=== PATIENT | female | born 1995 | race Two or more races ===

== ENCOUNTER 2016-11-25 04:22 | Inpatient (IN) | payer MEDICAID ==
[~2016-11-25] VITALS: Ht 160 cm; Wt 70.4 kg
[2016-11-25 05:25] LABS: Urine Bilirubin Negative (Negative); Urine Blood Negative /uL (Negative); Urine Color Yellow (Yellow); Urine Glucose Normal (Normal); Urine Ketone 2+ (Negative); Urine Mucus FEW (None Seen); Urine Nitrite Negative (Negative); Urine RBC 14 /hpf (0 - 4); Urine Squamous Epithelial Cell FEW /hpf (<5); Urine pH 5.5 (5.0-8.0)
[2016-11-25] MEDS ORDERED: SODIUM CHLORIDE 0.9% 1,000 ML IV ONE ×2 (07:30→09:45)
[2016-11-25 08:21] LABS: Basophils # (auto) 0 uL; CONDITION Y; Eosinophils # (auto) 0 uL; Eosinophils % (auto) 0.3 % (0.0-7.0); Hematocrit 37.6 % (36.0-46.0); Hemoglobin 12.7 g/dL (12.2-16.2); Lymphocytes # (auto) 0.4 uL; Lymphocytes % (auto) 5.2 % (10.0-50.0); Mean Corpuscular Hgb Conc. 33.8 g/dL (32.0-36.0); Mean Corpuscular Volume 91.6 fL (80.0-100.0); Mean Platelet Volume 10.2 fL (7.4-10.4); Monocytes # (auto) 0.2 uL; Monocytes % (auto) 2.9 % (0.0-12.0); Neutrophils # (auto) 6.9 uL; Neutrophils % (auto) 91.6 % (37.0-80.0); Platelet Count (auto) 225 10^3/uL (140-450); Red Cell Distribution Width 13.1 % (11.6-16.0); SUSPECT SEE PRINTOUT; White Blood Cell 7.5 10^3/uL (4.4-10.8)
[2016-11-25 08:35] LABS: INR 0.98 (0.9-1.15); Partial Thromboplastin Time 23.7 sec (22.64-33.71); Prothrombin Time 10.7 sec (9.37-12.3)
[2016-11-25 09:05] LABS: Albumin 4.1 g/dL (3.4-5.0); BUN/Creatinine Ratio 22.4; Bilirubin, Total 0.8 mg/dL (0.2-1.0); Calcium 8.6 mg/dL (8.5-10.1); Potassium 3.6 mmol/L (3.5-5.1); Total Protein 7.9 g/dL (6.4-8.2)
[2016-11-25] MEDS ORDERED: cefTRIAXone 1GM/50ML D5W 50 ML IV ONE ×2 (09:45→10:00)
[2016-11-25] MEDS ORDERED: PROMETHAZINE HCL 25 MG/ML 1ML IV PRN (10:00)
[2016-11-25] MEDS ORDERED: MORPHINE SULF INJ 2 MG/ML SYRINGE 1ML IV PRN (10:00)
[2016-11-25] MEDS ORDERED: LORazepam 0.5 MG TAB PO PRN (10:00)
[2016-11-25] MEDS ORDERED: TEMAZEPAM 15 MG CAP PO PRN (10:00)
[2016-11-25] MEDS: FAMOTIDINE (10MG/ML) 2ML VL IV SCH ×2 (10:16→21:23)
[2016-11-25] MEDS: SODIUM CHLORIDE 0.9% 1,000 ML IV SCH ×2 (13:16→20:52)
[2016-11-25] MEDS ORDERED: MORPHINE SULFATE 4 MG/ML SYRG IV PRN (14:11)
[2016-11-25 20:00] VITALS: BP 103/67
[2016-11-25 22:00] VITALS: BP 103/67
[2016-11-26] VITALS (7 sets, daily range): BP systolic 97–127; BP diastolic 55–78
[2016-11-26] MEDS: SODIUM CHLORIDE 0.9% 1,000 ML IV SCH ×2 (05:48→15:48)
[2016-11-26 07:32] LABS: BUN/Creatinine Ratio 9.6; Bilirubin, Total 0.4 mg/dL (0.2-1.0); Calcium 7.7 mg/dL (8.5-10.1); Potassium 3.5 mmol/L (3.5-5.1); Total Protein 5.9 g/dL (6.4-8.2)
[2016-11-26 07:38] LABS: Basophils # (auto) 0 uL; Basophils % (auto) 0.4 % (0.0-2.0); CONDITION Y; Eosinophils # (auto) 0.2 uL; Eosinophils % (auto) 4.5 % (0.0-7.0); Hematocrit 31.6 % (36.0-46.0); Hemoglobin 10.7 g/dL (12.2-16.2); Lymphocytes # (auto) 1.6 uL; Mean Corpuscular Hemoglobin 31.4 pg (28.0-32.0); Mean Corpuscular Hgb Conc. 33.8 g/dL (32.0-36.0); Mean Platelet Volume 10.8 fL (7.4-10.4); Monocytes # (auto) 0.2 uL; Monocytes % (auto) 6.3 % (0.0-12.0); Neutrophils # (auto) 1.5 uL; Neutrophils % (auto) 43.8 % (37.0-80.0); Platelet Count (auto) 175 10^3/uL (140-450); Red Cell Distribution Width 13.6 % (11.6-16.0); White Blood Cell 3.5 10^3/uL (4.4-10.8)
[2016-11-26] MEDS ORDERED: cefTRIAXone 1GM/50ML D5W 50 ML IV SCH (09:00)
[2016-11-26] MEDS ORDERED: CEFTRIAXONE SODIUM 2 GM in D5W 5% 50 ML IV SCH (10:00)
[2016-11-26] MEDS: FAMOTIDINE (10MG/ML) 2ML VL IV SCH (11:24)
[2016-11-30 05:09] LABS: Ceruloplasmin 27.6 mg/dL (19.0-39.0)
== END 2016-11-26 21:30 | disposition home or self-care (01) ==
LOC: ER 04:25 → OVERFLOW 04:26 → WEST WING 19:42
PROVIDERS: ADMIT Internal Medicine; ATTEND Hospitalist
DX: B17.9 Acute viral hepatitis, unspecified (principal); E27.8 Other specified disorders of adrenal gland; N39.0 Urinary tract infection, site not specified; Z83.3 Family history of diabetes mellitus; Z71.89 Other specified counseling
CPT/HCPCS: 36415; 71010; 74176; 76705; 76830; 76856; 80053; 80074; 81001; 81025; 82150; 82390; 83540; 83550; 83690; 85025; 85610; 85652; 85730; 86141; 87086; 96361; 96374; J0696; J3490; J7060

== ENCOUNTER 2020-03-20 11:45 | Inpatient (IN) | payer MEDICAID ==
[~2020-03-20] VITALS: Ht 160 cm; Wt 79.3 kg
[2020-03-20] MEDS ORDERED: SODIUM CHLORIDE 0.9% 1,000 ML IVB ONE (12:15)
[2020-03-20 12:40] LABS: Urine Bacteria NONE SEEN /hpf (None Seen); Urine Blood 3+ /uL (Negative); Urine Mucus FEW (None Seen); Urine Specific Gravity 1.021 (1.001-1.035); Urine WBC 68 /hpf (0 - 5)
[2020-03-20 13:48] LABS: Basophils # (auto) 0 10 ^3/uL (0-0.2); Basophils % (auto) 0.5 % (0.0-2.0); Eosinophils # (auto) 0.1 10 ^3/uL (0-0.8); Eosinophils % (auto) 1.7 % (0.0-7.0); Hematocrit 31.9 % (36.0-46.0); Hemoglobin 10.1 g/dL (12.2-16.2); Lymphocytes # (auto) 1.4 10 ^3/uL (0.4-5.4); Lymphocytes % (auto) 29.9 % (10.0-50.0); Mean Corpuscular Hemoglobin 27.6 pg (28.0-32.0); Mean Corpuscular Hgb Conc. 31.8 g/dL (32.0-36.0); Mean Corpuscular Volume 86.9 fL (80.0-100.0); Monocytes # (auto) 0.2 10 ^3/uL (0-1.3); Monocytes % (auto) 5.2 % (0.0-12.0); Neutrophils % (auto) 62.7 % (37.0-80.0); Platelet Count (auto) 247 10^3/uL (140-450); Red Blood Cells 3.67 10^6/uL (4.0-5.20); Red Cell Distribution Width 14.9 % (11.8-14.3); White Blood Cell 4.7 10^3/uL (4.4-10.8)
[2020-03-20 14:01] LABS: INR 0.98 (0.9-1.15); Partial Thromboplastin Time 24.6 sec (23.0-31.2)
[2020-03-20 14:02] LABS: Albumin 3.3 g/dL (3.4-5.0); Calcium 8.7 mg/dL (8.5-10.1); Potassium 3.3 mmol/L (3.5-5.1)
[2020-03-20 14:05] LABS: BUN/Creatinine Ratio 13.4
[2020-03-20 14:08] LABS: Bilirubin, Total 0.3 mg/dL (0.2-1.0)
[2020-03-20] MEDS ORDERED: POTASSIUM CHL 20 Meq TABLET PO ONE (15:00)
[2020-03-20] MEDS ORDERED: cefTRIAXone 1GM/50ML D5W 50 ML IV ONE (15:00)
[2020-03-20] MEDS ORDERED: ONDANSETRON HCL 4 MG/2 ML VIAL IV ONE (16:45)
[2020-03-20] MEDS ORDERED: MORPHINE SULF INJ 2 MG/ML SYRINGE 1ML IV ONE (16:45)
[2020-03-20] MEDS ORDERED: NITROGLYCERIN 0.4 MG SL TAB SL PRN ×2 (17:30→17:45)
[2020-03-20] MEDS ORDERED: MORPHINE SULF INJ 2 MG/ML SYRINGE 1ML IV PRN ×2 (17:30→17:45)
[2020-03-20] MEDS ORDERED: FOLIC ACID 1 MG TAB PO ONE (17:45)
[2020-03-20] MEDS ORDERED: ALUM & MAG HYDROX-SIMETH LIQ(MAALOX) 30 ML PO PRN (17:45)
[2020-03-20] MEDS ORDERED: MULTIPLE VITAMINS W/ MINERALS TAB PO ONE (17:45)
[2020-03-20] MEDS ORDERED: HYDROcodone-ACET 5/325MG TAB PO PRN (17:45)
[2020-03-20] MEDS ORDERED: DOCUSATE SOD 100 MG CAP PO PRN (17:45)
[2020-03-20] MEDS ORDERED: ONDANSETRON HCL 4 MG/2 ML VIAL IV PRN (17:45)
[2020-03-20] MEDS ORDERED: POTASSIUM CHL 20MEQ/100ML 100 ML IV ONE (17:45)
[2020-03-20] MEDS ORDERED: LACTATED RINGER'S 1,000 ML IV ONE (17:45)
[2020-03-20] MEDS ORDERED: ACETAMINOPHEN 325 MG TAB PO PRN (17:45)
[2020-03-20] MEDS ORDERED: LORazepam 0.5 MG TAB PO PRN (17:45)
[2020-03-20] MEDS ORDERED: FAMOTIDINE (10MG/ML) 2ML VL IV ONE (17:45)
[2020-03-20] MEDS ORDERED: CLINDAMYCIN 600MG IV 50 ML IV ONE (18:00)
[2020-03-20 19:23] LABS: % Iron Saturation 6.4 % (15-50)
[2020-03-20] MEDS: SODIUM CHLORIDE 0.9% 1,000 ML IV SCH (20:15)
--- NOTE | 2020-03-20 20:21 | NUR ---
ER CALLED [employer]ER CONSULT WITH DR. HARTMANN.
--- NOTE | 2020-03-20 20:30 | NUR ---
Opening note Telemetry admit from ER JUNEYARELI admitted to Telemetry unit. Patient oriented to KORI GIBSON, RN primary RN, unit, room, bed, and unit policies regarding patient care and visiting hours. Patient now on continuous telemetry monitoring, tele box # 32 and telemetry reading on arrival to unit is NSR. Patient placed on bedside oxygen, weighed by bedscale and encouraged to call if they need something. All questions and concerns addressed, patient verbalized understanding. Will continue to monitor Q1hr and PRN.
[2020-03-20 20:40] VITALS: BP 118/76
[2020-03-20] MEDS: MORPHINE SULF INJ 2 MG/ML SYRINGE 1ML IV PRN (20:50)
[2020-03-20 21:00] LABS: Alcohol, Urine < 3.0 mg/dL (0-10); Amphetamine Screen, Urine NEGATIVE (NEGATIVE); Barbiturate Scree,Urine NEGATIVE (NEGATIVE); Benzodiazephine Screen, Urine NEGATIVE (NEGATIVE); Cannabinoid Screen, Urine NEGATIVE (NEGATIVE); Cocaine Screen, Urine NEGATIVE (NEGATIVE); Opiate Scree,Urine NEGATIVE (NEGATIVE); Phencyclidine Screen, Urine NEGATIVE (NEGATIVE)
--- NOTE | 2020-03-20 21:30 | NUR ---
K-rider Patients potasium is 3.3. 20 meq is ordered IV once. Patient brought up from ER with K rider going. Patient states K rider was burning to much in the ER. Explained to the patient how a k rider works and how it gets diluted with Normal saline, and I can place it at lowest rate. Patient does not want to the k rider to infuse. Educated patient on the importance of potassium to infuse. Patient verbalized understanding. Flushed IV with 10 cc of normal saline patient tolerated well. no infiltration or discomfort. Will page the hospitalist to make aware. Patient stated she does not mind taking anything PO.
[2020-03-20 21:39] LABS: Cholesterol 123 mg/dL (< 200)
[2020-03-20 21:43] LABS: HDL Cholesterol 43 mg/dL (40-59); LDL Cholesterol 73 mg/dL (< 100); Triglycerides 88 mg/dL (< 150)
[2020-03-20 22:00] VITALS: BP 118/76
--- NOTE | 2020-03-20 22:00 | NUR ---
Paged Hospitalist Paged Hospitalist because patient is refusing the K rider to infuse. Will see if doctor will order anything PO. Will continue to monitor.
--- NOTE | 2020-03-20 23:18 | NUR ---
Hospitalist Paged back Explained to doctor that patient is refusing K rider. Patient has PO 40 meq potassium scheduled at 1000 am. Doctor said to "just document." Doctor said no new orders at this time. Will continue to monitor patient. Will let day shift RN know.
[2020-03-21 05:00] VITALS: BP 107/73
[2020-03-21] MEDS: CLINDAMYCIN 600MG IV 50 ML IV SCH ×3 (05:33→21:21)
[2020-03-21] MEDS: SODIUM CHLORIDE 0.9% 1,000 ML IV SCH ×2 (06:02→20:25)
--- NOTE | 2020-03-21 07:23 | NUR ---
Closing note Endorsed care to day shift RN. no sob or distress noted.
[2020-03-21] MEDS: FAMOTIDINE (10MG/ML) 2ML VL IV SCH ×2 (08:04→21:22)
[2020-03-21] MEDS: POTASSIUM CHL 20 Meq TABLET PO SCH (08:04)
[2020-03-21] MEDS: MULTIPLE VITAMINS W/ MINERALS TAB PO SCH (08:04)
[2020-03-21] MEDS: FOLIC ACID 1 MG TAB PO SCH (08:04)
[2020-03-21] MEDS: cefTRIAXone 1GM/50ML D5W 50 ML IV SCH (08:04)
[2020-03-21 08:26] VITALS: BP 117/78
[2020-03-21 08:39] VITALS: BP 117/78
[2020-03-21] MEDS: MORPHINE SULF INJ 2 MG/ML SYRINGE 1ML IV PRN (10:00)
[2020-03-21] MEDS ORDERED: IRON SUCROSE COMPLEX 200 MG in SODIUM CHL 0.9% 100 ML IV SCH (12:00)
[2020-03-21 12:30] VITALS: BP 110/68
--- NOTE | 2020-03-21 12:43 | NUR ---
Spoke to Dr. Torres, per MD he will come see the patient today. Dr. Obregon .L aware/informed.
[2020-03-21] MEDS ORDERED: SODIUM FERR GLUC 62.5MG/5ML 125 MG in SODIUM CHL 0.9% 100 ML IV ONE (13:15)
[2020-03-21 13:31] LABS: Basophils # (auto) 0 10 ^3/uL (0-0.2); Basophils % (auto) 0.8 % (0.0-2.0); Eosinophils # (auto) 0.1 10 ^3/uL (0-0.8); Eosinophils % (auto) 2.2 % (0.0-7.0); Hematocrit 32.2 % (36.0-46.0); Hemoglobin 10.6 g/dL (12.2-16.2); Lymphocytes # (auto) 1.3 10 ^3/uL (0.4-5.4); Lymphocytes % (auto) 36.5 % (10.0-50.0); Mean Corpuscular Hemoglobin 28.5 pg (28.0-32.0); Mean Corpuscular Hgb Conc. 33.1 g/dL (32.0-36.0); Mean Corpuscular Volume 86.1 fL (80.0-100.0); Monocytes # (auto) 0.1 10 ^3/uL (0-1.3); Monocytes % (auto) 4.2 % (0.0-12.0); Neutrophils # (auto) 1.9 10 ^3/uL (1.6-8.6); Neutrophils % (auto) 56.3 % (37.0-80.0); Nucleated Red Blood Cells % 0.1 %; Platelet Count (auto) 249 10^3/uL (140-450); Red Blood Cells 3.74 10^6/uL (4.0-5.20); Red Cell Distribution Width 15.1 % (11.8-14.3); White Blood Cell 3.4 10^3/uL (4.4-10.8)
--- NOTE | 2020-03-21 14:01 | NUR ---
Dr. Torres at bedside.
[2020-03-21 14:16] LABS: BUN/Creatinine Ratio 9.9; Calcium 8.5 mg/dL (8.5-10.1); Potassium 3.8 mmol/L (3.5-5.1)
[2020-03-21] MEDS: IBUPROFEN 600 MG TAB PO PRN ×2 (15:10→21:22)
[2020-03-21 17:03] VITALS: BP 98/56
--- NOTE | 2020-03-21 18:44 | NUR ---
closing note shift Patient is comfortably resting in bed, breath sounds are even and unlabored. NS IV fluids running at 75mls/hr. No c/o pain. No s/s of distress/sob noted/stated. Bed at lowest locked position and call light within reach. Will endorse care to NOC RN.
--- NOTE | 2020-03-21 19:05 | NUR ---
Opening Shift Note Assumed care of patient, awake and alert x4. Bed in low locked position, call light within reach .No S/S of distress/SOB or pain. Instructed on POC and to call for assist PRN, will continue to monitor for changes Q1hr and PRN.
--- NOTE | 2020-03-21 20:30 | NUR ---
Patient complained of pain on her IV site. On Assessment no redness, flushed good without pain. Applied cold compress and elevate the site, Explained the patient the cause of pain with iron infused. Then patient it was better. Will continue to monitor.
[2020-03-21 22:00] VITALS: BP 106/61
--- NOTE | 2020-03-22 05:04 | NUR ---
Patient denies any needs. No pain and sob. will continue to educate and monitor.
[2020-03-22 05:41] VITALS: BP 103/51
[2020-03-22] MEDS: CLINDAMYCIN 600MG IV 50 ML IV SCH (06:06)
[2020-03-22] MEDS: SODIUM CHLORIDE 0.9% 1,000 ML IV SCH (06:12)
[2020-03-22 06:23] LABS: Basophils # (auto) 0 10 ^3/uL (0-0.2); Eosinophils # (auto) 0.1 10 ^3/uL (0-0.8); Eosinophils % (auto) 3.4 % (0.0-7.0); Hematocrit 33.8 % (36.0-46.0); Hemoglobin 10.8 g/dL (12.2-16.2); Lymphocytes # (auto) 1.2 10 ^3/uL (0.4-5.4); Lymphocytes % (auto) 35.4 % (10.0-50.0); Mean Corpuscular Hemoglobin 27.7 pg (28.0-32.0); Mean Corpuscular Volume 86.7 fL (80.0-100.0); Monocytes # (auto) 0.2 10 ^3/uL (0-1.3); Monocytes % (auto) 6.2 % (0.0-12.0); Neutrophils # (auto) 1.8 10 ^3/uL (1.6-8.6); Nucleated Red Blood Cells % 0.1 %; Platelet Count (auto) 237 10^3/uL (140-450); White Blood Cell 3.4 10^3/uL (4.4-10.8)
[2020-03-22 06:36] LABS: INR 0.98 (0.9-1.15); Partial Thromboplastin Time 25.9 sec (23.0-31.2)
[2020-03-22 06:42] LABS: Albumin 3.4 g/dL (3.4-5.0); Calcium 8.5 mg/dL (8.5-10.1); Magnesium 2.2 mg/dL (1.6-2.6); Potassium 3.9 mmol/L (3.5-5.1)
[2020-03-22 06:46] LABS: BUN/Creatinine Ratio 15.1; Bilirubin, Total 0.2 mg/dL (0.2-1.0); Phosphorus 3.6 mg/dL (2.5-4.90); Total Protein 6.8 g/dL (6.4-8.2)
--- NOTE | 2020-03-22 08:15 | NUR ---
Opening Shift Note Assumed care of patient, awake and alert. No S/S of distress/SOB or pain. Bed in lowest/locked position, bed rails up x2, call light within reach. Instructed on POC and to call for assist PRN. Will continue to monitor for changes Q1hr and PRN.
[2020-03-22 08:57] VITALS: BP 108/64
[2020-03-22] MEDS: FAMOTIDINE (10MG/ML) 2ML VL IV SCH (09:16)
[2020-03-22] MEDS: MULTIPLE VITAMINS W/ MINERALS TAB PO SCH (09:16)
[2020-03-22] MEDS: cefTRIAXone 1GM/50ML D5W 50 ML IV SCH (09:16)
[2020-03-22] MEDS: POTASSIUM CHL 20 Meq TABLET PO SCH (09:17)
[2020-03-22] MEDS: IBUPROFEN 600 MG TAB PO PRN (09:17)
[2020-03-22] MEDS: FOLIC ACID 1 MG TAB PO SCH (09:17)
--- NOTE | 2020-03-22 11:05 | NUR ---
MD CALL LEFT MESSAGE WITH DR JIMENEZ RE: PATIENT REQUESTING TO BE DISCHARGED. AWAITING RETURN CALL
[2020-03-22] MEDS ORDERED: SODIUM FERR GLUC 62.5MG/5ML 125 MG in SODIUM CHL 0.9% 100 ML IV SCH (12:00)
[2020-03-22] MEDS ORDERED: levoFLOXacin 500 MG TAB PO ONE (12:00)
[2020-03-22] MEDS ORDERED: HYDR-4833 PO (12:02)
[2020-03-22] MEDS ORDERED: LEVO500T21 PO (12:02)
[2020-03-22] MEDS ORDERED: FER325T PO (12:02)
[2020-03-22] MEDS ORDERED: DOCU-94 PO (12:02)
[2020-03-22] MEDS ORDERED: ACE325T PO (12:02)
--- NOTE | 2020-03-22 12:05 | NUR ---
MD CALL LEFT MESSAGE FOR DR HARTMANN RE: PATIENT CLEAR FOR D/C PER DR Tari RODRIGUEZ. AWAITING RETURN CALL
--- NOTE | 2020-03-22 12:50 | NUR ---
EKG EKG PERFORMED, IN CHART FOR MD PER DR Tari RODRIGUEZ ORDERS
--- NOTE | 2020-03-22 13:50 | NUR ---
DR HARTMANN PATIENT CLEAR FOR D/C.
--- NOTE | 2020-03-22 14:45 | NUR ---
Discharge instructions given as ordered. Encourage to follow up with PMD as instructed. All questions and concerns addressed. Patient verbalized understanding. IV removed with catheter intact, pressure dressing applied. Telemetry unit returned to ICU. Patient taken to vehicle via wheelchair with all personal belongings, accompanied by staff. No distress noted at time of departure.
[2020-03-22] MEDS ORDERED: FERROUS SULFATE 325 MG TAB PO SCH (18:00)
== END 2020-03-22 14:43 | disposition home or self-care (01) | DRG 532 ==
LOC: ER 11:45 → TELE 11:46 → TELE-CENTR 20:30
PROVIDERS: ADMIT Hospitalist; ATTEND Hospitalist
DX: N92.1 Excessive and frequent menstruation with irregular cycle (principal); N83.202 Unspecified ovarian cyst, left side; D50.8 Other iron deficiency anemias; E66.9 Obesity, unspecified; E87.6 Hypokalemia; R00.1 Bradycardia, unspecified; Z68.31 Body mass index [BMI] 31.0-31.9, adult; Z82.49 Family history of ischemic heart disease and other diseases of the circulatory system; Z83.3 Family history of diabetes mellitus
CPT/HCPCS: 36415; 76830; 76856; 80048; 80053; 80061; 80307; 81001; 83540; 83550; 83735; 84100; 84443; 84484; 84702; 85025; 85610; 85730; 87040; 87086; 93005; 96365; 96367; 96375; G0378; J0696; J1756; J2405; J3480; J3490

== ENCOUNTER 2020-11-21 09:48 | Emergency (ER) | payer MEDICAID ==
[~2020-11-21] VITALS: Ht 165.1 cm; Wt 72.6 kg
[~2020-11-21 09:48] MED LIST: ACET325T10 PO; DOCU-94 PO; FER325T PO; HYDR-4833 PO; LEVO500T31 PO
[2020-11-21 10:11] VITALS: BP 127/85
[2020-11-21] MEDS ORDERED: LOPERAMIDE HCL 2 MG CAP PO ONE (10:45)
[2020-11-21] MEDS ORDERED: DICYCLOMINE HCL 10 MG CAP PO ONE (10:45)
== END 2020-11-21 11:05 | disposition home or self-care (01) ==
LOC: ER 09:48
DX: R19.7 Diarrhea, unspecified (principal)
CPT/HCPCS: 99283; J0500

== ENCOUNTER 2021-09-25 20:48 | Emergency (ER) | payer MEDICAID ==
[~2021-09-25] VITALS: Ht 160 cm; Wt 80.7 kg
[2021-09-25 21:30] VITALS: BP 121/89
[2021-09-25 21:33] LABS: Basophils # (auto) 0.1 10 ^3/uL (0-0.2); Basophils % (auto) 0.8 % (0.0-2.0); Eosinophils # (auto) 0.2 10 ^3/uL (0-0.8); Eosinophils % (auto) 2.4 % (0.0-7.0); Hematocrit 35.9 % (36.0-46.0); Hemoglobin 12.3 g/dL (12.2-16.2); Lymphocytes % (auto) 27.8 % (10.0-50.0); Mean Corpuscular Hgb Conc. 34.3 g/dL (32.0-36.0); Mean Corpuscular Volume 87.4 fL (80.0-100.0); Monocytes # (auto) 0.5 10 ^3/uL (0-1.3); Monocytes % (auto) 6.5 % (0.0-12.0); Neutrophils # (auto) 4.5 10 ^3/uL (1.6-8.6); Neutrophils % (auto) 62.5 % (37.0-80.0); Red Blood Cells 4.11 10^6/uL (4.0-5.20); Red Cell Distribution Width 15.4 % (11.8-14.3); White Blood Cell 7.2 10^3/uL (4.4-10.8)
[2021-09-25 21:44] LABS: Urine Bacteria FEW /hpf (None Seen); Urine Blood Negative /uL (Negative); Urine Budding Yeast OCCASIONAL /hpf (None Seen); Urine Mucus FEW (None Seen); Urine Specific Gravity 1.009 (1.001-1.035); Urine WBC 28 /hpf (0 - 5)
[2021-09-25] MEDS ORDERED: NITR-87 PO (21:47)
[2021-09-25 21:51] LABS: Albumin 4.3 g/dL (3.4-5.0); Calcium 9.6 mg/dL (8.5-10.1); Potassium 3.4 mmol/L (3.5-5.1)
[2021-09-25 21:56] LABS: BUN/Creatinine Ratio 13.6; Bilirubin, Total 0.3 mg/dL (0.2-1.0); Total Protein 8.3 g/dL (6.4-8.2)
== END 2021-09-25 22:37 | disposition home or self-care (01) ==
LOC: ER 20:48
DX: R07.89 Other chest pain (principal); N39.0 Urinary tract infection, site not specified; Z32.02 Encounter for pregnancy test, result negative
CPT/HCPCS: 36415; 71046; 80053; 81001; 81025; 85025; 93005

== ENCOUNTER 2022-01-09 15:32 | Emergency (ER) | payer MEDICAID ==
[~2022-01-09] VITALS: Ht 160 cm; Wt 79.0 kg
[~2022-01-09 15:32] MED LIST changes: +NITR-87 PO
[2022-01-09 15:39] VITALS: BP 117/75
== END 2022-01-09 17:13 | disposition home or self-care (01) ==
LOC: ER 15:32
DX: S52.121A Displaced fracture of head of right radius, initial encounter for closed fracture (principal); V89.9XXA Person injured in unspecified vehicle accident, initial encounter; Y93.55 Activity, bike riding; Y92.89 Other specified places as the place of occurrence of the external cause; Y99.8 Other external cause status
CPT/HCPCS: 29105; 73080

== ENCOUNTER 2023-05-04 04:01 | Inpatient (IN) | payer SELFPAY ==
[~2023-05-04] VITALS: Ht 160 cm; Wt 88.2 kg
[~2023-05-04 04:01] MED LIST changes: +ACET-1882 PO; -ACET325T10 PO
[2023-05-04 04:47] LABS: Urine Bacteria NONE SEEN /hpf (None Seen); Urine Blood Negative /uL (Negative); Urine Clarity Clear (Clear); Urine Color Yellow (Yellow); Urine Protein, UAD Negative (Negative); Urine Specific Gravity 1.021 (1.001-1.035); Urine Urobilinogen Normal (Negative); Urine WBC 16 /hpf (0 - 5); Urine pH 5.5 (5.0-8.0)
[2023-05-04 05:02] LABS: Basophils # (auto) 0.1 10 ^3/uL (0-0.2); Basophils % (auto) 0.6 % (0.0-2.0); Eosinophils # (auto) 0.2 10 ^3/uL (0-0.8); Eosinophils % (auto) 1.3 % (0.0-7.0); Hematocrit 36.7 % (36.0-46.0); Hemoglobin 12.2 g/dL (12.2-16.2); Lymphocytes # (auto) 1.9 10 ^3/uL (0.4-5.4); Lymphocytes % (auto) 14.6 % (10.0-50.0); Mean Corpuscular Hemoglobin 29.1 pg (28.0-32.0); Mean Corpuscular Hgb Conc. 33.3 g/dL (32.0-36.0); Mean Corpuscular Volume 87.3 fL (80.0-100.0); Monocytes # (auto) 0.5 10 ^3/uL (0-1.3); Monocytes % (auto) 3.7 % (0.0-12.0); Neutrophils # (auto) 10.5 10 ^3/uL (1.6-8.6); Neutrophils % (auto) 79.8 % (37.0-80.0); Red Cell Distribution Width 15.1 % (11.8-14.3); White Blood Cell 13.1 10^3/uL (4.4-10.8)
[2023-05-04 05:17] LABS: Alanine Aminotransferase 17 U/L (7-40); Albumin 4.8 g/dL (3.2-4.8); Alkaline Phosphatase 72 U/L (46-116); Anion Gap 9 (5-15); Aspartate Aminotransferase 11 U/L (13-40); BUN/Creatinine Ratio 14.1 (10.0-20.0); Bilirubin, Total 0.5 mg/dL (0.2-1.0); Blood Urea Nitrogen 11 mg/dL (9-23); Calcium 9.3 mg/dL (8.7-10.4); Carbon Dioxide 23 mmol/L (20-30); Chloride 103 mmol/L (98-107); Glucose 109 mg/dL (74-106); Lipase 34 U/L (12-53); Potassium 3.7 mmol/L (3.5-5.1); Sodium 135 mmol/L (136-145); Total Protein 7.5 g/dL (5.7-8.2)
[2023-05-04] MEDS ORDERED: SODIUM CHLORIDE 0.9% 1,000 ML IV ONE (06:15)
[2023-05-04] MEDS ORDERED: MORPHINE SULFATE INJ 2 MG/ml SYRG IV ONE (06:15)
[2023-05-04] MEDS ORDERED: ONDANSETRON HCL 4 MG/2 ML VIAL IV ONE (06:15)
[2023-05-04] MEDS ORDERED: PIPERACILLIN-TAZOB 3.375GM 100 ML IV ONE (06:30)
[2023-05-04 09:05] LABS: INR 0.97 (0.9-1.15); Prothrombin Time 10.2 sec (9.3-11.8)
[2023-05-04 09:15] VITALS: PULSE 61; RESP 13; O2SAT 99
[2023-05-04] MEDS ORDERED: PANTOPRAZOLE 40 MG/10 ML VIAL INJ IV ONE (09:15)
[2023-05-04] MEDS: SODIUM CHLORIDE 0.9% 1,000 ML IV SCH ×4 (09:30→17:00)
[2023-05-04] MEDS: PANTOPRAZOLE 40 MG/10 ML VIAL INJ IV SCH (09:32)
[2023-05-04 09:43] LABS: Triglycerides 67 mg/dL (< 150)
[2023-05-04 09:44] LABS: LDL Cholesterol 64 mg/dL (< 100)
[2023-05-04 09:45] LABS: Cholesterol 113 mg/dL (< 200); HDL Cholesterol 45 mg/dL (40-59)
[2023-05-04] MEDS ORDERED: SUCCINYLCHOLINE CHLORIDE 20 MG/ML 10ML VIAL IV ONE (12:08)
[2023-05-04] MEDS ORDERED: LIDOCAINE 2% JELLY 11ml (GLYDO) ONE (12:08)
[2023-05-04] MEDS ORDERED: MEPERIDINE HCL (25 MG/ML) 1ML VIAL ONE (12:44)
[2023-05-04] MEDS ORDERED: MIDAZOLAM HCL 2MG/2ML 2ml VIAL (1mg/ml) ONE (12:45)
[2023-05-04] MEDS ORDERED: fentaNYL CITRATE 100 MCG/2 ML VL ONE (12:45)
[2023-05-04] MEDS ORDERED: ONDANSETRON HCL 4 MG/2 ML VIAL IV PRN (13:15)
[2023-05-04] MEDS ORDERED: ePHEDrine SULFATE 50 MG/ML AMP IV PRN (13:15)
[2023-05-04] MEDS ORDERED: KETOROLAC TROMETH 30 MG/ML 1ML VIAL IV ONE (13:15)
[2023-05-04] MEDS ORDERED: MORPHINE SULFATE 4 MG/ML SYR/VIAL IV PRN (13:15)
[2023-05-04] MEDS ORDERED: LABETALOL HCL 5 MG/ML 4ML SYRINGE IV PRN (13:15)
[2023-05-04] MEDS ORDERED: MIDAZOLAM HCL 2MG/2ML 2ml VIAL (1mg/ml) IV PRN (13:15)
[2023-05-04] MEDS ORDERED: BUPIVACAINE 0.5% P/F INJ 10 ML VIAL ONE (13:27)
[2023-05-04] MEDS ORDERED: DexAMETHasone SOD PHOS 10MG/1ML VIAL INJ ONE (13:29)
[2023-05-04] MEDS ORDERED: SODIUM CHLORIDE LOCK 30 ML ONE (13:29)
[2023-05-04] MEDS ORDERED: PROPOFOL 10 MG/ML 20 ML IV ONE (13:29)
[2023-05-04] MEDS ORDERED: ONDANSETRON HCL 4 MG/2 ML VIAL ONE (13:30)
[2023-05-04] MEDS ORDERED: SUGAMMADEX 200mg/2ml Vial (100MG/ML) IV ONE (13:43)
[2023-05-04] MEDS ORDERED: PIPERACILLIN-TAZOB 3.375GM 100 ML IV SCH (14:00)
[2023-05-04] MEDS: HYDROmorphone HCL 2 MG/ML VL/or syr IV PRN ×4 (14:02→14:32)
[2023-05-04 16:43] VITALS: PULSE 68; RESP 16; O2SAT 96
[2023-05-04] MEDS: ONDANSETRON HCL 4 MG/2 ML VIAL IV PRN ×2 (18:37→22:55)
[2023-05-04] MEDS: MORPHINE SULFATE INJ 2 MG/ml SYRG IV PRN ×2 (18:37→22:59)
[2023-05-04 22:00] VITALS: BP 99/52; PULSE 58; RESP 15; TEMP 98.2; O2SAT 98
[2023-05-04] MEDS: PIPERACILLIN-TAZOB 3.375GM 100 ML IV SCH (23:06)
[2023-05-05] MEDS: PIPERACILLIN-TAZOB 3.375GM 100 ML IV SCH ×3 (04:51→18:53)
[2023-05-05 05:00] VITALS: BP 97/57; PULSE 71; RESP 16; TEMP 98.1; O2SAT 97
[2023-05-05 07:25] LABS: Alanine Aminotransferase 11 U/L (7-40); Albumin 4.1 g/dL (3.2-4.8); Alkaline Phosphatase 66 U/L (46-116); Anion Gap 7 (5-15); Aspartate Aminotransferase 10 U/L (13-40); Bilirubin, Total 0.7 mg/dL (0.2-1.0); Calcium 8.4 mg/dL (8.7-10.4); Carbon Dioxide 23 mmol/L (20-30); Chloride 107 mmol/L (98-107); Glucose 118 mg/dL (74-106); Potassium 3.6 mmol/L (3.5-5.1); Sodium 137 mmol/L (136-145); Total Protein 6.4 g/dL (5.7-8.2)
[2023-05-05 07:27] LABS: Basophils # (auto) 0 10 ^3/uL (0-0.2); Basophils % (auto) 0.1 % (0.0-2.0); Eosinophils # (auto) 0 10 ^3/uL (0-0.8); Hematocrit 34.1 % (36.0-46.0); Hemoglobin 11.2 g/dL (12.2-16.2); Lymphocytes # (auto) 0.7 10 ^3/uL (0.4-5.4); Lymphocytes % (auto) 8.1 % (10.0-50.0); Mean Corpuscular Hemoglobin 29.5 pg (28.0-32.0); Mean Corpuscular Hgb Conc. 32.8 g/dL (32.0-36.0); Mean Corpuscular Volume 89.9 fL (80.0-100.0); Monocytes # (auto) 0.3 10 ^3/uL (0-1.3); Monocytes % (auto) 3.4 % (0.0-12.0); Neutrophils # (auto) 7.1 10 ^3/uL (1.6-8.6); Neutrophils % (auto) 88.4 % (37.0-80.0); White Blood Cell 8.1 10^3/uL (4.4-10.8)
[2023-05-05 07:32] LABS: BUN/Creatinine Ratio 7.4 (10.0-20.0); Blood Urea Nitrogen < 5 mg/dL (9-23)
[2023-05-05 08:00] VITALS: PULSE 80; O2SAT 96
[2023-05-05 09:00] VITALS: BP 113/76; PULSE 72; RESP 18; TEMP 98.7; O2SAT 96
[2023-05-05] MEDS: PANTOPRAZOLE 40 MG/10 ML VIAL INJ IV SCH (09:12)
[2023-05-05] MEDS: ONDANSETRON HCL 4 MG/2 ML VIAL IV PRN (09:12)
[2023-05-05] MEDS: MORPHINE SULFATE INJ 2 MG/ml SYRG IV PRN (09:13)
[2023-05-05 13:00] VITALS: BP 102/63; PULSE 64; RESP 20; TEMP 98.8; O2SAT 99
[2023-05-05 16:36] VITALS: BP 111/66; PULSE 69; RESP 20; TEMP 98.7; O2SAT 97
[2023-05-05] MEDS ORDERED: DOCUSATE SOD 100 MG CAP PO PRN (18:45)
[2023-05-05] MEDS: LACTULOSE 20Gm/30ML SOLN PO PRN (18:53)
[2023-05-05] MEDS: HYDROcodone-ACET 10/325MG TAB PO SCH ×2 (18:53→23:58)
[2023-05-05 22:00] VITALS: BP 116/68; PULSE 65; RESP 17; TEMP 98.3; O2SAT 96
[2023-05-06] MEDS: PIPERACILLIN-TAZOB 3.375GM 100 ML IV SCH ×2 (00:47→06:21)
[2023-05-06] MEDS: SODIUM CHLORIDE 0.9% 1,000 ML IV SCH (01:15)
[2023-05-06 05:00] VITALS: BP 110/59; PULSE 60; RESP 17; TEMP 98; O2SAT 97
[2023-05-06] MEDS: HYDROcodone-ACET 10/325MG TAB PO SCH ×2 (06:20→11:56)
[2023-05-06 09:00] VITALS: BP 104/72; PULSE 70; RESP 20; TEMP 98; O2SAT 96
[2023-05-06] MEDS: PANTOPRAZOLE 40 MG/10 ML VIAL INJ IV SCH (10:36)
[2023-05-06] MEDS: LACTULOSE 20Gm/30ML SOLN PO PRN (10:36)
[2023-05-06] MEDS ORDERED: LEVO500T91 PO (11:51)
[2023-05-06] MEDS ORDERED: METR-344 PO (11:51)
[2023-05-06] MEDS ORDERED: HYDR-4902 PO (11:51)
[2023-05-06 13:00] VITALS: BP 115/75; PULSE 64; RESP 18; TEMP 98.4; O2SAT 98
[2023-05-06 13:10] VITALS: BP 104/72; PULSE 70; RESP 20; TEMP 98; O2SAT 96
[2023-05-06 16:56] VITALS: BP 117/75; PULSE 69; RESP 20; TEMP 98; O2SAT 99
== END 2023-05-06 17:16 | disposition home or self-care (01) | DRG 398 ==
LOC: ER 04:01 → OVERFLOW 09:03 → WEST WING 16:37
PROVIDERS: ADMIT Nurse Practitioner Family; ATTEND Family Medicine
PROC: 0W9J4ZZ Drainage of Pelvic Cavity, Percutaneous Endoscopic Approach (ICD-10-PCS; 2023-05-04)
PROC: 0DTJ4ZZ Resection of Appendix, Percutaneous Endoscopic Approach (ICD-10-PCS; principal; 2023-05-04 12:44)
DX: K35.33 Acute appendicitis with perforation, localized peritonitis, and gangrene, with abscess (principal); N30.00 Acute cystitis without hematuria; N73.9 Female pelvic inflammatory disease, unspecified; E66.01 Morbid (severe) obesity due to excess calories; Z68.34 Body mass index [BMI] 34.0-34.9, adult; E86.0 Dehydration; Z83.3 Family history of diabetes mellitus; Z71.3 Dietary counseling and surveillance
CPT/HCPCS: 36415; 74176; 80053; 80061; 81001; 83690; 84443; 84702; 85025; 85610; 86850; 86900; 86901; 87040; 87086; 96365; 96375; C9113; G0378; J0330; J1100; J2250; J2405; J2543; J2704; J3490

== ENCOUNTER 2024-08-03 15:32 | Emergency (ER) | payer MEDICAID ==
[~2024-08-03] VITALS: Ht 160 cm; Wt 85.3 kg
[~2024-08-03 15:32] MED LIST changes: +HYDR-4902 PO; +LEVO500T91 PO; +METR-344 PO
--- NOTE | 2024-08-03 15:43 | ED.PDOC ---
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 PATIENT REPORTS 8/10 PAIN. PAIN CAUSES NAUSEA. HE WAS ALSO BEEN HAVING SOME INTERMITTENT DIARRHEA LAST NIGHT AND TODAY. PATIENT WAS A REPORT A HISTORY OF RUPTURED OVARIAN CYST WHICH FELT SIMILAR. SAYS THE PAIN CAUSED HER TO FEEL MILDLY DIZZY AND FAINT. STATES SHE WAS STARTED HER MENSTRUAL ON 07/31. DENIES ANY CHANCE OF . NO NEW FOODS NO NEW MEDICATIONS. Time Seen by MD: 15:34 Reviewed Notes: Nurses Notes Allergies: Coded Allergies: NO KNOWN ALLERGIES (Unverified , 11/25/16) Home Meds Active Scripts Hydrocodone-Acetaminophen (Hydrocodone Bitartrate/AC 5-325 mg) 1 Tab Tab, 1 TAB PO QID PRN, #20 TAB Prov:PILAR KERN MD 05/06/23 Metronidazole (Flagyl) 500 Mg Tab, 1 TAB PO TID, #30 TAB Prov:PILAR KERN MD 05/06/23 Levofloxacin Hemihydrate (LEVAQUIN 500 MG) 500 Mg Tab, 1 TAB PO DAILY, #7 TAB Prov:PILAR KERN MD 05/06/23 Nitrofurantoin Monohydrate Mac (Macrobid) 100 Mg Cap, 100 MG PO BID for 5 Days, #10 CAP Prov:MARILY POLO MD 09/25/21 Hydrocodone-Acetaminophen ([place] 5/325MG) 1 Tab Tb, 1 TAB PO Q8HPRN PRN MDD severe pain , #15 MG Prov:ROCKY RODRIGUEZ MD 03/22/20 Levofloxacin (Levaquin) 500 Mg Tab, 500 MG PO DAILY, #4 MG Prov:ROCKY RODRIGUEZ MD 03/22/20 Docusate Sodium (Colace) 100 Mg Cap, 100 MG PO BID PRN MDD Constipation, #20 MG Prov:ROCKY RODRIGUEZ MD 03/22/20 Ferrous Sulfate (Ferrous Sulfate) 325 Mg Tab, 325 MG PO Q12HR, #20 MG Prov:ROCKY RODRIGUEZ MD 03/22/20 Acetaminophen (Acetaminophen) 325 Mg Tab, 650 MG PO Q6HP PRN MDD mild to moderate pain , #40 TAB Prov:ROCKY RODRIGUEZ MD 03/22/20 Information Source: Patient Past Medical History PAST MEDICAL HISTORY: Denies Surgical History: Appendectomy, Tonsillectomy 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 History Family History Family History: Reviewed,noncontributory to illness, Family hx of DM, Family hx of HTN Social History Smoker: Non-Smoker Alcohol: Rarely Drugs: Denies Drug Use Lives In: Home Constitutional: reports: fatigue; denies: chills, diaphoresis, fever, malaise, sweats, weakness, others EENTM: denies: blurred vision, double vision, ear bleeding, ear discharge, ear drainage, ear pain, ear ringing, eye pain, eye redness, hearing loss, mouth pain, mouth swelling, nasal discharge, nose bleeding, nose congestion, nose pain, photophobia, tearing, throat pain, throat swelling, voice changes, others Respiratory: denies: cough, hemoptysis, orthopnea, SOB at rest, shortness of breath, SOB with excertion, stridor, wheezing, others Cardiovascular: reports: dizzy spells; denies: chest pain, diaphoresis, Dyspnea on exertion, edema, irregular heart beat, left arm pain, lightheadedness, palpitations, PND, syncope, others Gastrointestinal: reports: abdominal pain; denies: abdomen distended, blood streaked bowels, constipated, diarrhea, dysphagia, difficulty swallowing, hematemesis, melena, nausea, poor appetite, poor fluid intake, rectal bleeding, rectal pain, vomiting, others Genitourinary: denies: abnormal vagina bleeding, burning, dyspareunia, dysuria, flank pain, frequency, hematuria, incontinence, pain, , vagina discharge, urgency, others Neurological: denies: dizziness, fainting, headache, left sided numbness, left sided weakness, numbness, paresthesia, pre-existing deficit, right sided numbness, right sided weakness, seizure, speech problems, tingling, tremors, weakness, others Musculoskeletal: denies: back pain, gout, joint pain, joint swelling, muscle pain, muscle stiffness, neck pain, others Integumetry: denies: bruises, change in color, change in hair/nails, dryness, laceration, lesions, lumps, rash, wounds, others Allergic/Immunocompromised: denies: Difficulty Healing, Frequent Infections, Hives, Itching, others Hematologic/Lymphatic: denies: anemia, blood clots, easy bleeding, easy bruising, swollen glands, others Physical Exam General Appearance: Moderate Distress HEENT: Normal ENT Inspection, Pharynx Normal, TMs Normal Neck: Full Range of Motion, Non-Tender, Normal, Normal Inspection Respiratory: Chest Non-Tender, Lungs Clear, No Accessory Muscle Use, No Respiratory Distress, Normal Breath Sounds Cardiovascular: No Edema, No JVD, No Murmur, No Gallop, Normal Peripheral Pulses, Regular Rate/Rhythm Breast Exam: Deferred Gastrointestinal: No Organomegaly, Normal Bowel Sounds, Soft, Suprapubic (TENDER TO PALPATION) Genitalia: Deferred Pelvic: Deferred Rectal: Deferred Extremities: No calf tenderness, Normal capillary refill, Normal inspection, Normal range of motion, Non-tender, No pedal edema Musculoskeletal : Apperance: Normal Neurologic: Alert, pipeline integrity engineer II-XII nml as Tested, No Motor Deficits, Normal Affect, Normal Mood, No Sensory Deficits Cerebellar Function: Normal Reflexes: Normal Skin: Dry, Normal Color, Warm Lymphatic: No Adenopathy Was a procedure done? Was a procedure done?: No Differential Diagnosis (WASTE W[employer] TREATMENT PLANT OPERATOR) Vaginal Bleeding: Ectopic , Hormonal, Menstrual Bleeding Vaginal Discharge: X-Ray, Labs, Meds, VS Vital Signs Date Time Temp Pulse Resp B/P (MAP) Pulse Ox O2 Delivery O2 Flow Rate FiO2 08/03/24 15:47 97.8 60 18 138/91 (107) 96 Lab Test 08/03/24 18:00 08/03/24 16:43 Range/Units Urine Color Colorless Yellow Urine Clarity Clear Clear Urine pH 6.0 5.0-9.0 Urine Specific [place] 1.007 1.001-1.035 Urine Protein Trace H Negative Urine Ketones Negative Negative Urine Blood 3+ H Negative /uL Urine Nitrite Negative Negative Urine Bilirubin Negative Negative Urine Urobilinogen Normal Negative mg/dL Urine Leukocyte Esterase 2+ Negative /uL Urine RBC 168 0 - 4 /hpf Urine Microscopic WBC 23 H 0-5 /HPF Urine Squamous Epithelial Cells Few <5 /hpf Urine Bacteria Few H None Seen /hpf Urine Glucose Normal Normal mg/dL Urine Test Negative Negative White Blood Count 7.0 4.4-10.8 10^3/uL Red Blood Count 4.27 4.0-5.20 10^6/uL Hemoglobin 12.2 12.2-16.2 g/dL Hematocrit 36.8 36.0-46.0 % Mean Corpuscular Volume 86.1 80.0-100.0 fL Mean Corpuscular Hemoglobin 28.5 28.0-32.0 pg Mean Corpuscular Hemoglobin Concent 33.1 32.0-36.0 g/dL Red Cell Distribution Width 14.7 H 11.8-14.3 % Platelet Count 290 140-450 10^3/uL Mean Platelet Volume 10.1 6.9-10.8 fL Neutrophils (%) (Auto) 63.8 37.0-80.0 % Lymphocytes (%) (Auto) 27.7 10.0-50.0 % Monocytes (%) (Auto) 5.4 0.0-12.0 % Eosinophils (%) (Auto) 2.6 0.0-7.0 % Basophils (%) (Auto) 0.5 0.0-2.0 % Neutrophils # (Auto) 4.5 1.6-8.6 10 ^3/uL Lymphocytes # (Auto) 1.9 0.4-5.4 10 ^3/uL Monocytes # (Auto) 0.4 0-1.3 10 ^3/uL Eosinophils # (Auto) 0.2 0-0.8 10 ^3/uL Basophils # (Auto) 0 0-0.2 10 ^3/uL Nucleated Red Blood Cells 0.1 % Sodium Level 141 136-145 mmol/L Potassium Level 3.8 3.5-5.1 mmol/L Chloride Level 108 H 98-107 mmol/L Carbon Dioxide Level 26 20-31 mmol/L Anion Gap 7 5-15 Blood Urea Nitrogen 12 9-23 mg/dL Creatinine 0.81 0.550-1.02 mg/dL Glomerular Filtration Rate Calc 100 >90 mL/min BUN/Creatinine Ratio 14.8 10.0-20.0 Serum Glucose 89 74-106 mg/dL Calcium Level 10.1 8.7-10.4 mg/dL Total Bilirubin 0.3 0.2-1.0 mg/dL Aspartate Amino Transferase (AST) 16 13-40 U/L Alanine Aminotransferase (ALT) 21 7-40 U/L Alkaline Phosphatase 76 46-116 U/L Total Protein 7.8 5.7-8.2 g/dL Albumin 5.3 H 3.2-4.8 g/dL Beta HCG, Quantitative 0.5 L 1.5-4.2 mIU/mL Current Medications Medications (Trade) Dose Ordered Sig/Martin Route Start Time Stop Time Status Last Admin Ondansetron HCl (Zofran Po) 4 mg ONCE ONCE PO 08/03/24 15:45 08/03/24 15:46 DC 08/03/24 18:33 Ketorolac Tromethamine (Toradol Injection) 30 mg ONCE ONCE IM 08/03/24 18:45 08/03/24 18:46 DC 08/03/24 18:41 X-Ray, Labs, Meds, VS Comment IMAGING: X-RAYS AND CT SCANS WERE REVIEWED AND INTERPRETED BY THIS PROVIDER, IMAGING SHOWS NO FRACTURES AND NO PATHOLOGICAL DISEASE. PENDING RADIOLOGY REVIEW. ULTRASOUND PELVIS: FREE FLUID IN THE UTERUS, CONSISTENT WITH RUPTURED OVARIAN CYST LABORATORY: LABS REVIEWED AND INTERPRETED BY THIS PROVIDER. NO SIGNIFICANT ABNORMALITIES NOTED. PATIENT HEMODYNAMICALLY STABLE BE SENT HOME WITH PAIN MEDICATIONS AND ADVISED TO FOLLOW UP IN 24 HOURS. PATIENT HAS PRIOR MEDICAL VISITS REVIEWED. MED RECONCILIATION PERFORMED VITAL SIGNS REVIEWED Time of 1ST Reevaluation: 19:36 Reevaluation 1ST: Improved Patient Education/Counseling: Diagnosis, Treatment, Need For Follow Up (PATIENT ADVISED TO FOLLOW-UP IN THE EMERGENCY ROOM IN THE NEXT 24 TO 48 HOURS IF SYMPTOMS DO NOT IMPROVE. ADVISED FOLLOW-UP WITH PCP IN THE NEXT 3 TO 5 DAYS. PATIENT VERBALIZED UNDERSTANDING. ) Family Education/Counseling: Diagnosis Departure 1 Departure Time of Disposition: 19:37 Impression: Primary Impression: Hemorrhagic cyst of left ovary Disposition: HOME / SELF CARE / HOMELESS Condition: Fair e-Prescriptions Hydrocodone-Acetaminophen (Hydrocodone Bitartrate/AC 5-325 mg) 1 Tab Tab 1 TAB PO TID PRN, #20 TAB Prov: TAVARES LACY 08/03/24 Discharged With: Self Critical Care Note Critical Care Time?: No Stability Stability form required: TAVARES Peters Aug 03, 2024 15:43
[2024-08-03 17:06] LABS: Alanine Aminotransferase 21 U/L (7-40); Alkaline Phosphatase 76 U/L (46-116); Anion Gap 7 (5-15); Aspartate Aminotransferase 16 U/L (13-40); BUN/Creatinine Ratio 14.8 (10.0-20.0); Blood Urea Nitrogen 12 mg/dL (9-23); Calcium 10.1 mg/dL (8.7-10.4); Carbon Dioxide 26 mmol/L (20-31); Glucose 89 mg/dL (74-106); Potassium 3.8 mmol/L (3.5-5.1); Sodium 141 mmol/L (136-145); Total Protein 7.8 g/dL (5.7-8.2)
[2024-08-03 17:12] LABS: Albumin 5.3 g/dL (3.2-4.8); Bilirubin, Total 0.3 mg/dL (0.2-1.0); Chloride 108 mmol/L (98-107)
--- NOTE | 2024-08-03 17:14 | DVH ---
Procedure: US PELVIC Study Date and Requested Time: 08/03/2024 03:45 PM Study Description: US PELVIC History: PELVIC PAIN Comparison: PELVIC on DOS: 03/20/20 Technique: Multiple transabdominal and transvaginal high resolution carmona-scale images obtained of the uterus and adnexa with color Doppler for evaluation of adnexal blood flow and vascularity as indicat ed. Findings: Uterus measures 8.5 x 4.7 x 4.6 cm, with homogeneous echotexture. Endometrium within normal limits, m easuring 12 mm in thickness with smooth contour. Cervix within normal limits. Right ovary measures 3.7 x 4.4 x 2.6 cm with a 3.4 cm cyst. Left ovary measures 3.6 x 3.1 x 2.8 cm wi th a 4.1 x 3 x 5.3 cm heterogeneous lesion. Normal ovarian color Doppler flow bilaterally. Moderate amount of free fluid with debris noted within the cul-de-sac. Impression: Moderate amount of nonsimple free fluid within the cul-de-sac. Correlate for possible blood products . Ectopic versus rupture cyst can not be excluded. Recommend correlation with beta HCG poss ible CT if clinically indicated 4.1 x 3 x 3.5 cm heterogeneous lesion over the left ovary / adnexa.
[2024-08-03] MEDS: ONDANSETRON ODT 4 MG TAB PO ONE (18:33)
[2024-08-03] MEDS: KETOROLAC TROMETH 30 MG/ML 1ML VIAL IM ONE (18:41)
[2024-08-03 18:50] LABS: Urine Bacteria FEW /hpf (None Seen); Urine Blood 3+ /uL (Negative); Urine Clarity Clear (Clear); Urine Color Colorless (Yellow); Urine Protein, UAD TRACE (Negative); Urine Specific Gravity 1.007 (1.001-1.035); Urine Squamous Epithelial Cell FEW /hpf (<5); Urine Urobilinogen Normal (Negative); Urine WBC 23 /HPF (0-5)
[2024-08-03 19:09] LABS: Basophils # (auto) 0 10 ^3/uL (0-0.2); Basophils % (auto) 0.5 % (0.0-2.0); Eosinophils # (auto) 0.2 10 ^3/uL (0-0.8); Eosinophils % (auto) 2.6 % (0.0-7.0); Hematocrit 36.8 % (36.0-46.0); Hemoglobin 12.2 g/dL (12.2-16.2); Lymphocytes # (auto) 1.9 10 ^3/uL (0.4-5.4); Lymphocytes % (auto) 27.7 % (10.0-50.0); Mean Corpuscular Hemoglobin 28.5 pg (28.0-32.0); Mean Corpuscular Hgb Conc. 33.1 g/dL (32.0-36.0); Mean Corpuscular Volume 86.1 fL (80.0-100.0); Monocytes # (auto) 0.4 10 ^3/uL (0-1.3); Monocytes % (auto) 5.4 % (0.0-12.0); Neutrophils # (auto) 4.5 10 ^3/uL (1.6-8.6); Neutrophils % (auto) 63.8 % (37.0-80.0); Nucleated Red Blood Cells % 0.1 %; Platelet Count (auto) 290 10^3/uL (140-450); Red Blood Cells 4.27 10^6/uL (4.0-5.20); Red Cell Distribution Width 14.7 % (11.8-14.3)
[2024-08-03] MEDS ORDERED: HYDR-4902 PO (19:39)
[2024-08-03 20:00] VITALS: BP 134/92; PULSE 63; RESP 18; TEMP 97.6; O2SAT 99
== END 2024-08-03 20:02 | disposition home or self-care (01) ==
LOC: ER 15:32
DX: N83.292 Other ovarian cyst, left side (principal); R10.2 Pelvic and perineal pain; Z90.49 Acquired absence of other specified parts of digestive tract; Z90.89 Acquired absence of other organs; Z79.899 Other long term (current) drug therapy
CPT/HCPCS: 36415; 76856; 80053; 81001; 81025; 84702; 85025; 96372; 99285; J1885; Q0162